=== PATIENT | female | born 1935 | race African-American/Black ===

== ENCOUNTER → 2018-04-12 16:18 | Outpatient (CLI) | payer MEDICARE, OTHER, SELFPAY ==
[2018-04-12 17:08] LABS: Absolute Lymphocyte Count 1.78 X10^3/ul (0.83-4.51); Absolute Neutrophil Count 2.4 X10^3/uL (2.0-7.7); Basophil# 0.01 X10^3/uL; Basophil% 0.2 % (0-1); Eosinophil# 0.12 X10^3/uL; Eosinophils% 2.5 % (0-5); Hematocrit 32.4 % (37-47); Hemoglobin 11.2 g/dl (12.0-15.0); Lymphocyte # 1.78 X10^3/ul (4.0); Lymphocyte % 37.7 % (19-41); Mean Corp Hgb Conc 34.6 g/gl (32-36); Mean Corpuscular Hgb 28.9 pg (27.0-32.0); Mean Corpuscular Volume 83.7 fL (81-99); Monocyte# 0.45 X10^3/uL; Monocyte% 9.5 % (0-10); Neutrophil # 2.36 X10^3/uL (2.7-7.7); Neutrophil % 50.1 % (47-70); POSITIVE COUNT NO; POSITIVE DIFFERENTIAL NO; POSITIVE MORPHOLOGY NO; Platelet Count 162 K/mm3 (150-450); RBC Distribution Width CV 14.7 % (11.6-14.6); RBC Distribution Width SD 44.2 fl (35.1-43.9); Red Blood Count 3.87 M/mm3 (4.2-5.4); White Blood Count 4.7 K/mm3 (4.4-11.0)
[2018-04-12 17:45] LABS: ALB/GLOB Ratio 0.9 RATIO (0.9-2.4); AST(SGOT) 9 U/L (15-37); Alanine Aminotransfer ALT/SGPT 11 U/L (13-56); Albumin, Serum 3.5 g/dL (3.2-5.0); Alkaline Phosphatase 71 U/L (45-117); Anion Gap 11 (5-15); BUN 13 mg/dL (7-18); BUN/Creat Ratio 13.5 RATIO (10-20); Calcium,Total 9.5 mg/dL (8.5-10.1); Chloride 105 mmol/L (98-107); Creatinine, Serum 0.96 mg/dL (0.55-1.02); EST Glomerular Filtration Rate 59 mL/min (>60); Est Glom Filt Rate - Afr Amer 71 mL/min (>60); Globulin 3.8 g/dL (2.2-4.2); Glucose 100 mg/dL (74-106); Potassium 3.6 mmol/L (3.5-5.1); Protein, Total 7.3 g/dL (6.4-8.2); Sodium Level 145 mmol/L (136-145); Thyroid Stim Hormone (TSH) 2.13 uIU/mL (0.358-3.74)
[2018-04-12 17:51] LABS: Vitamin D,25 Hydroxy 44.8 ng/mL (29.95-100.01)
== END ==
PROVIDERS: Family Provider Family Medicine Geriatric Medicine; PCP Family Medicine Geriatric Medicine; Visit Provider Family Medicine Geriatric Medicine
DX: I10 Essential (primary) hypertension (principal); E55.9 Vitamin D deficiency, unspecified
CPT/HCPCS: 36415; 80053; 82306; 84443; 85025

== ENCOUNTER → 2018-07-29 16:02 | Outpatient (CLI) | payer MEDICARE, OTHER, SELFPAY ==
[2018-07-29 18:31] LABS: ALB/GLOB Ratio 1.1 RATIO (0.9-2.4); AST(SGOT) 12 U/L (15-37); Alanine Aminotransfer ALT/SGPT 14 U/L (13-56); Albumin, Serum 3.7 g/dL (3.2-5.0); Alkaline Phosphatase 80 U/L (45-117); Anion Gap 9 (5-15); BUN 15 mg/dL (7-18); BUN/Creat Ratio 16.4 RATIO (10-20); Calcium,Total 9.9 mg/dL (8.5-10.1); Chloride 107 mmol/L (98-107); Cholesterol 257 mg/dL (200); Creatinine, Serum 0.92 mg/dL (0.55-1.02); EST Glomerular Filtration Rate 62 mL/min (>60); Est Glom Filt Rate - Afr Amer 75 mL/min (>60); Globulin 3.5 g/dL (2.2-4.2); Glucose 90 mg/dL (74-106); High Density Lipoprotein 86 mg/dL; Potassium 3.8 mmol/L (3.5-5.1); Protein, Total 7.2 g/dL (6.4-8.2); Sodium Level 143 mmol/L (136-145); Triglycerides 98 mg/dL; Very Low Density Lipoprotein 20 mg/dL (5-40)
== END ==
PROVIDERS: Family Provider Family Medicine; PCP Family Medicine; Referring Provider Family Medicine; Visit Provider Family Medicine
DX: E78.5 Hyperlipidemia, unspecified (principal)
CPT/HCPCS: 36415; 80053; 80061

== ENCOUNTER → 2019-05-02 16:03 | Outpatient (CLI) | payer MEDICARE, OTHER, SELFPAY ==
[2019-05-02 17:53] LABS: AST(SGOT) 10 U/L (15-37); Alanine Aminotransfer ALT/SGPT 14 U/L (13-56); Anion Gap 7 (5-15); BUN 13 mg/dL (7-18); Calcium,Total 9.8 mg/dL (8.5-10.1); Chloride 103 mmol/L (98-107); Cholesterol 246 mg/dL (200); Creatinine, Serum 0.81 mg/dL (0.55-1.02); EST Glomerular Filtration Rate 72 mL/min (>60); Est Glom Filt Rate - Afr Amer 87 mL/min (>60); Glucose 122 mg/dL (74-106); High Density Lipoprotein 82 mg/dL; Potassium 3.7 mmol/L (3.5-5.1); Sodium Level 138 mmol/L (136-145); Thyroid Stim Hormone (TSH) 1.25 uIU/mL (0.358-3.74); Triglycerides 94 mg/dL; Very Low Density Lipoprotein 19 mg/dL (5-40)
== END ==
PROVIDERS: Family Medicine; PCP Family Medicine; Referring Provider Family Medicine; Visit Provider Family Medicine
DX: I10 Essential (primary) hypertension (principal); I48.91 Unspecified atrial fibrillation; E78.5 Hyperlipidemia, unspecified
CPT/HCPCS: 36415; 80048; 80061; 84443; 84450; 84460

== ENCOUNTER → 2019-12-28 16:12 | Outpatient (CLI) | payer MEDICARE, OTHER, SELFPAY ==
[2019-12-28 19:02] LABS: Anion Gap 9 (5-15); BUN 15 mg/dL (7-18); BUN/Creat Ratio 18.8 RATIO (10-20); Calcium,Total 9.7 mg/dL (8.5-10.1); Chloride 104 mmol/L (98-107); Cholesterol 264 mg/dL (200); EST Glomerular Filtration Rate 73 mL/min (>60); Est Glom Filt Rate - Afr Amer 88 mL/min (>60); Glucose 92 mg/dL (74-106); High Density Lipoprotein 95 mg/dL; Potassium 3.3 mmol/L (3.5-5.1); Sodium Level 138 mmol/L (136-145); Triglycerides 109 mg/dL; Very Low Density Lipoprotein 22 mg/dL (5-40)
== END ==
PROVIDERS: PCP Family Medicine; Referring Provider Family Medicine; Visit Provider Family Medicine
DX: I10 Essential (primary) hypertension (principal)
CPT/HCPCS: 36415; 80048; 80061

== ENCOUNTER → 2020-04-25 15:18 | Outpatient (CLI) | payer MEDICARE, OTHER, SELFPAY ==
[2020-04-25 18:11] LABS: Anion Gap 3 (5-15); BUN 25 mg/dL (7-18); BUN/Creat Ratio 27.6 RATIO (10-20); Calcium,Total 10.7 mg/dL (8.5-10.1); Chloride 107 mmol/L (98-107); EST Glomerular Filtration Rate 63 mL/min (>60); Est Glom Filt Rate - Afr Amer 76 mL/min (>60); Glucose 101 mg/dL (74-106); Potassium 4.1 mmol/L (3.5-5.1); Sodium Level 142 mmol/L (136-145)
== END ==
PROVIDERS: PCP Family Medicine; Visit Provider Family Medicine
DX: I48.91 Unspecified atrial fibrillation (principal)
CPT/HCPCS: 36415; 80048

== ENCOUNTER → 2020-12-05 16:01 | Outpatient (CLI) | payer MEDICARE, OTHER, SELFPAY ==
[2020-12-05 18:11] LABS: Absolute Lymphocyte Count 1.82 X10^3/uL (0.83-4.51); Absolute Neutrophil Count 2.8 X10^3/uL (2.0-7.7); Basophil# 0.02 X10^3/uL; Basophil% 0.4 % (0-1); Eosinophil# 0.07 X10^3/uL; Eosinophils% 1.3 % (0-5); Hematocrit 34.9 % (37-47); Hemoglobin 11.9 g/dL (12.0-15.0); Lymphocyte # 1.82 X10^3/ul (0.83-4.51); Lymphocyte % 34.7 % (19-41); Mean Corp Hgb Conc 34.1 g/dL (32-36); Mean Corpuscular Hgb 27.9 pg (27.0-32.0); Mean Corpuscular Volume 81.9 fL (81-99); Mean Platelet Vol. 11.6 fl (6.2-12.0); Monocyte# 0.56 X10^3/uL; Monocyte% 10.7 % (0-10); NRBC Flagged by Analyzer 0 % (0-5); Neutrophil # 2.76 X10^3/uL (2.7-7.7); Neutrophil % 52.7 % (47-70); Platelet Count 217 K/mm3 (150-450); RBC Distribution Width CV 14.7 % (11.6-14.6); RBC Distribution Width SD 43.5 fl (35.1-43.9); Red Blood Count 4.26 M/mm3 (4.2-5.4); White Blood Count 5.2 K/mm3 (4.4-11.0)
[2020-12-05 18:59] LABS: Anion Gap 9 (5-15); BUN 25 mg/dL (7-18); Calcium,Total 10.3 mg/dL (8.5-10.1); Chloride 104 mmol/L (98-107); Cholesterol 227 mg/dL (200); Creatinine, Serum 1.19 mg/dL (0.55-1.02); EST Glomerular Filtration Rate 46 mL/min (>60); Est Glom Filt Rate - Afr Amer 55 mL/min (>60); Glucose 112 mg/dL (74-106); High Density Lipoprotein 70 mg/dL; Sodium Level 141 mmol/L (136-145); Thyroid Stim Hormone (TSH) 0.86 uIU/mL (0.358-3.74); Triglycerides 112 mg/dL; Very Low Density Lipoprotein 22 mg/dL (5-40)
== END ==
PROVIDERS: PCP Family Medicine; Referring Provider Family Medicine; Visit Provider Family Medicine
DX: E78.5 Hyperlipidemia, unspecified (principal); I10 Essential (primary) hypertension; R53.83 Other fatigue
CPT/HCPCS: 36415; 80048; 80061; 84443; 85025

== ENCOUNTER 2021-06-03 15:00 | Outpatient (CLI) | payer MEDICARE, OTHER, SELFPAY ==
[2021-06-03 17:55] LABS: Absolute Lymphocyte Count 1.41 X10^3/uL (0.83-4.51); Absolute Neutrophil Count 2.3 X10^3/uL (2.0-7.7); Basophil# 0.03 X10^3/uL; Basophil% 0.7 % (0-1); Eosinophil# 0.08 X10^3/uL; Eosinophils% 1.8 % (0-5); Hematocrit 35.2 % (37-47); Hemoglobin 12.3 g/dL (12.0-15.0); Lymphocyte # 1.41 X10^3/ul (0.83-4.51); Lymphocyte % 32.3 % (19-41); Mean Corp Hgb Conc 34.9 g/dL (32-36); Mean Corpuscular Hgb 28.3 pg (27.0-32.0); Mean Corpuscular Volume 81.1 fL (81-99); Mean Platelet Vol. 11.9 fl (6.2-12.0); Monocyte# 0.51 X10^3/uL; Monocyte% 11.7 % (0-10); NRBC Flagged by Analyzer 0 % (0-5); Neutrophil # 2.33 X10^3/uL (2.7-7.7); Neutrophil % 53.3 % (47-70); Platelet Count 211 K/mm3 (150-450); RBC Distribution Width CV 14.8 % (11.6-14.6); RBC Distribution Width SD 43.9 fl (35.1-43.9); Red Blood Count 4.34 M/mm3 (4.2-5.4); White Blood Count 4.4 K/mm3 (4.4-11.0)
[2021-06-03 18:08] LABS: ALB/GLOB Ratio 0.9 RATIO (0.9-2.4); AST(SGOT) 13 U/L (15-37); Alanine Aminotransfer ALT/SGPT 11 U/L (13-56); Albumin, Serum 3.6 g/dL (3.2-5.0); Alkaline Phosphatase 66 U/L (45-117); Anion Gap 8 (5-15); BUN 14 mg/dL (7-18); BUN/Creat Ratio 14.8 RATIO (10-20); Calcium,Total 10.4 mg/dL (8.5-10.1); Chloride 103 mmol/L (98-107); Cholesterol 267 mg/dL (200); Creatinine, Serum 0.95 mg/dL (0.55-1.02); EST Glomerular Filtration Rate 59 mL/min (>60); Est Glom Filt Rate - Afr Amer 72 mL/min (>60); Globulin 4.1 g/dL (2.2-4.2); Glucose 114 mg/dL (74-106); High Density Lipoprotein 70 mg/dL; Potassium 3.6 mmol/L (3.5-5.1); Protein, Total 7.7 g/dL (6.4-8.2); Sodium Level 139 mmol/L (136-145); Triglycerides 133 mg/dL; Very Low Density Lipoprotein 27 mg/dL (5-40)
== END 2021-06-03 23:59 | disposition home or self-care (01) ==
LOC: MFPLAB 15:01
PROVIDERS: PCP Family Medicine; Visit Provider Family Medicine
DX: I10 Essential (primary) hypertension (principal); R53.83 Other fatigue
CPT/HCPCS: 36415; 80053; 80061; 85025

== ENCOUNTER 2021-06-07 16:52 | Observation (INO) | payer MEDICARE, OTHER, SELFPAY ==
[2021-06-07] VITALS (11 sets, daily range): BP systolic 81–137; BP diastolic 47–69; PULSE 70–96; RESP 15–28; TEMP 36.5–36.9; O2SAT 95–100; BMI 19.5; BMI 17.6
--- NOTE | 2021-06-07 17:10 | EKG12_ITS ---
Test Reason : SYNCOPE Blood Pressure : / mmHG Vent. Rate : 069 BPM Atrial Rate : 069 BPM P-R Int : 182 ms QRS Dur : 096 ms QT Int : 424 ms P-R-T Axes : 041 063 051 degrees QTc Int : 454 ms Normal sinus rhythm with sinus arrhythmia ST & T wave abnormality, consider lateral ischemia Abnormal ECG Confirmed by BROCK SMALLS, PADMA ([id number]), digital editor HILAROI MCGREGOR ([id number]) on 06/11/2021 11:44:05 AM Referred By: AMERICO Confirmed By:PADMA GUTIÉRREZ MD
--- NOTE | 2021-06-07 17:15 | RAD_ITS ---
INDICATION: chest pain EXAMINATION/TECHNIQUE: X-RAY - XR Chest 1 View COMPARISON: None. FINDINGS: The lungs are clear. Tortuous and calcified thoracic aorta. The heart is mildly enlarged. Flattening of the hemidiaphragms. No pleural effusion or pneumothorax. Degenerative changes of the thoracic spine and shoulders. RAD/Chest 1 View (Portable) IMPRESSION: No acute radiographic abnormalities. COPD. Electronically Signed: Nato Ibrahim MD at 18:30 EDT ,
--- NOTE | 2021-06-07 17:18 | EDS_ITS ---
HPI History of Present Illness Chief Complaint: Syncope Informant: patient Onset/Context/Timing Onset: Today Context: Sudden Onset Timing: Intermittent Current Severity: Mild Maximum Severity: Moderate Narrative Narrative: 85-year-old female history of hypertension. States she took her medications at home felt lightheaded and had a syncopal event. I believe the squad came out checked her out and she did not come in the emergency department. And she had a second episode while in the bathroom. She denies any headache or chest pain. She denies any recent illness. She did have nausea and vomiting after the first episode. Denies any abdominal pain or chest pain. Patient denies any history of cardiac disease. Denies prior syncopal events. Prior similar symptoms: No Recent Illness/Hospitalization: No PFSH PFSH Medical History High cholesterol HTN (hypertension) Home Medications amlodipine 10 mg PO DAILY 05/20/20 [History Last Taken Unknown] carvedilol 12.5 mg PO BID 05/20/20 [History Last Taken Unknown] lisinopril 40 mg PO DAILY 05/20/20 [History Last Taken Unknown] minoxidil 10 mg PO DAILY 05/20/20 [History Last Taken Unknown] simvastatin 40 mg PO DAILY 05/20/20 [History Last Taken Unknown] Allergy/AdvReac Type Severity Reaction Status Date / Time No Known Allergies Allergy Verified 06/07/21 16:52 Social History Smoking Status: Never smoker ROS ROS ED ROS Narrative Nausea and vomiting after syncopal episode. Review of Systems ROS Unobtainable: Denies due to encephalopathy Constitutional Constitutional ED: Denies fever(s) Eyes Eyes: Denies change in vision ENT ENT ED: Denies ear pain Cardiovascular Cardiovascular: Denies chest pain Respiratory/Chest Respiratory/Chest: Denies dyspnea Gastrointestinal Gastrointestinal: Reports nausea and vomiting; Denies abdominal pain or diarrhea Genitourinary Genitourinary ED: Denies dysuria Musculoskeletal Musculoskeletal: Denies myalgias Integumentary Denies rash Neurologic Neurologic: Denies headache(s) Psychiatric Psychiatric: Denies depression Endocrine Endocrinology: Denies polyuria Allergic/Immunologic Allergic/Immunologic ED: Denies urticaria EXAM Physical Exam Narrative Exam Narrative: 85-year-old female no acute distress. Initial blood pressure 130/69. Heart rate 70. She is afebrile. She does not look septic or toxic. She denies any complaints. H EENT exam unremarkable atraumatic. Pupils round reactive light. No facial droop. Moist membranes. Neck nontender no lymphadenopathy. No JVD. Lungs clear to auscultation bilaterally. Heart regular rate and rhythm rate about 70 no murmur. Chest wall nontender. Abdomen soft nontender. Normal bowel sounds no peritoneal signs. Moving all 4 extre mities. 5-5 gasoline attendant strength. Dorsi plantarflexion intact. No shortening or deformity of either upper or lower extremities. Back nontender. Neurologically she is awake and alert. Answering questions and following commands. She knows the month and appropriately. There is no focal motor deficits. She is not confused. Const Vital Signs: 06/07/21 16:53 06/07/21 16:59 06/07/21 17:14 Temperature 97.7 F L Temperature Source Oral Pulse Rate 70 Respiratory Rate 15 Respiratory Effort Normal Non-Labored Respiratory Pattern Normal Blood Pressure 137/69 H Blood Pressure Mean 91 Pulse Ox 96 Oxygen Delivery Method Room Air Room Air 06/07/21 18:27 06/07/21 19:04 06/07/21 19:17 Temperature Temperature Source Pulse Rate 70 71 Respiratory Rate 22 H 24 H Respiratory Effort Respiratory Pattern Blood Pressure 102/55 L 81/48 L 89/50 L Blood Pressure Mean 70 59 63 Pulse Ox 95 99 Oxygen Delivery Method Nasal Cannula Room Air 06/07/21 20:01 06/07/21 20:31 Temperature 98.5 F Temperature Source Oral Pulse Rate 81 83 Respiratory Rate 28 H 20 H Respiratory Effort Respiratory Pattern Blood Pressure 96/47 L 97/55 L Blood Pressure Mean 63 69 Pulse Ox 96 100 Oxygen Delivery Method Room Air Room Air Positive well nourished and well developed; Negative for obese, cachectic, contractures or unkempt General Appearance ED: well developed and NAD; Negative for unkempt, cachectic, contractures, cyanotic or diaphoretic Nutritional Appearance: Negative for cachectic or obese HEENT Reports moist mucous membranes Negative for trauma or tenderness Eyes PERRL and EOMs intact bilaterally General Eye ED: Negative for pale conjunctiva or scleral icterus Neck no lymphadenopathy, supple and no JVD General: Negative for tenderness Chest Wall inspection of chest normal and palpation of chest normal Resp normal respiratory effort and clear to auscultation bilaterally Auscultation: Negative for rales, rhonchi or wheezes Cardio regular rate, regular rhythm, S1 normal heart sound, S2 normal heart sound and no murmurs GI normal to inspection, nondistended, normoactive bowel sounds, non-tender, non- distended and no masses Inspection: Negative for abdominal distention Auscultation: normoactive bowel sounds Palpation: soft; Negative for tender, guarding or rebound tenderness present Back/Spine no CVA tenderness General Back: Negative for CVA tenderness Cervical Spine: Negative for cervical spine tenderness Thoracic Spine / Upper Back: Negative for thoracic spinal tenderness Lumbar Spine / Lower Back: Negative for lumbar spinal tenderness Extremity normal to inspection General Extremety ED: Negative for edema or tenderness General Extremity: Negative for edema Neuro oriented x3 Sensorium / Orientation: alert; Negative for orientation impaired, lethargic or stuporous Motor Exam: strength 5/5 throughout Psych mental status grossly normal Appearance: Negative for unkempt Mood & Affect: Negative for depressed or tearful Skin no rashes or lesions noted and no wounds MDM MDM MDM Narrative Medical decision making narrative: 85-year-old female from home treated for hypertension. Had 2 syncopal episodes today. After the second had nausea and vomiting. Prior to passing out she had no symptoms. She denies any headache, chest pain or shortness of breath. No abdominal pain. She will undergo cardiac work-up. She will be treated with IV fluids. Repeat exam patient doing well. After 2 L of fluid her blood pressure really has not changed drastically she is between 90 and 100 systolic. She is tolerating it well. She is sitting upright in bed. She and I and to friends at the side of the bed discussed all of her test results. She will be admitted to the hospital. I have the hospitalist on page. A urine culture will be sent. Lab Data Attestation: I reviewed the patient's lab results. Lab results narrative: CBC shows a white count 7. H&H 9.9 and 27.8. Platelets 173. Electrolytes show potassium of 3.2. Gap of 2. BUN 19 creatinine 1.75. Glucose 148. Chest x-ray unremarkable. Lactic acid normal 0.4. Urinalysis shows 10-25 white cells. 0 squamous cells no bacteria no nitrates. Be sent for culture. Labs: Laboratory Results - last 24 hr 06/07/21 06/07/21 06/07/21 17:30 17:30 19:45 WBC 7.4 RBC 3.42 L Hgb 9.9 L Hct 27.8 L MCV 81.3 MCH 28.9 MCHC 35.6 RDW Std Deviation 44.5 H RDW Coeff of Desiree 15.0 H Plt Count 173 MPV 10.9 Immature Gran % (Auto) 0.300 Neut % (Auto) 82.3 H Lymph % (Auto) 12.1 L [place] % (Auto) 4.7 Eos % (Auto) 0.3 Baso % (Auto) 0.3 Absolute Neuts (auto) 6.1 Absolute Lymphs (auto) 0.90 Nucleated RBC % 0 Sodium 143 Potassium 3.2 L Chloride 114 H Carbon Dioxide 27.0 Anion Gap 2 L BUN 19 H Creatinine 1.75 H Estim Creat Clear Calc 16.83 Est GFR (MDRD) Af Amer 35 L Est GFR (MDRD) Non-Af 29 L BUN/Creatinine Ratio 10.9 Glucose 148 H Lactic Acid Calcium 8.4 L Urine Color Ayesha Urine Clarity Sl. Cloudy Urine pH 5.0 Ur Specific [place] 1.025 Urine Protein 30 H Urine Glucose (UA) Normal Urine Ketones 5 H Urine Occult Blood Negative Urine Nitrite Negative Urine Bilirubin 3 H Urine Urobilinogen 8 H Ur Leukocyte Esterase 500 H Urine RBC 0 SEEN Urine WBC 10-25 SEEN Ur Squamous Epith Cells 0-5 SEEN Ur Renal Epithelial Cell 0-5 SEEN Amorphous Sediment 1+ Urine Bacteria 0 SEEN Urine Mucus 0 SEEN 06/07/21 19:59 WBC RBC Hgb Hct MCV MCH MCHC RDW Std Deviation RDW Coeff of Desiree Plt Count MPV Immature Gran % (Auto) Neut % (Auto) Lymph % (Auto) [place] % (Auto) Eos % (Auto) Baso % (Auto) Absolute Neuts (auto) Absolute Lymphs (auto) Nucleated RBC % Sodium Potassium Chloride Carbon Dioxide Anion Gap BUN Creatinine Estim Creat Clear Calc Est GFR (MDRD) Af Amer Est GFR (MDRD) Non-Af BUN/Creatinine Ratio Glucose Lactic Acid 0.4 Calcium Urine Color Urine Clarity Urine pH Ur Specific [place] Urine Protein Urine Glucose (UA) Urine Ketones Urine Occult Blood Urine Nitrite Urine Bilirubin Urine Urobilinogen Ur Leukocyte Esterase Urine RBC Urine WBC Ur Squamous Epith Cells Ur Renal Epithelial Cell Amorphous Sediment Urine Bacteria Urine Mucus Radiography Chest X-Ray - ED: 1 View, Read by ED Physician, Read by Radiologist, Heart, Lungs, Mediastinum, Bony Structures, No Acute Disease and Chronic Changes Diagnostic Testing: Clinical Impression(s) from Imaging Studies Chest X-Ray 06/07/21 17:15 IMPRESSION: No acute radiographic abnormalities. COPD. Electronically Signed: Nato Ibrahim MD at 18:30 EDT , Rhythm Strip Rhythm Strip: Sinus Rhythm Rate: 69 Ectopy: None EKG Initial EKG: Attestation: I personally reviewed and interpreted this EKG as follows: Interpretation: Sinus Rhythm and No Acute Injury Pattern Comments: Normal sinus rhythm rate of 69. Inverted T waves in V3 through 6. That change but the most recent EKG we have is from 2008. No signs of ST elevation or dysrhythmia. Prior EKG tracings: available for review Follow-up EKG: Attestation: I personally reviewed and interpreted this EKG as follows: Comments: Repeat EKG was obtained. Computer is read as a possible A. fib. It is irregular but there do appear to be P waves before certain QRS complexes. I discussed this with the hospitalist he is reviewing the EKG also.. We discussed possible cardiology consultation. Discharge Plan Triage Chief Complaint: Syncope ED Provider: Carlos Manuel Lomeli Dx/Rx/DC Orders Clinical Impression: Syncope, Acute hypotension Primary Care Provider: Kevyn Tripp
[2021-06-07] MEDS: 0.9% Normal Saline 1,000 ML 999 ML IV ×2 (17:38→19:23)
[2021-06-07 17:54] LABS: Absolute Neutrophil Count 6.1 X10^3/uL (2.0-7.7); Basophil# 0.02 X10^3/uL; Basophil% 0.3 % (0-1); Eosinophil# 0.02 X10^3/uL; Eosinophils% 0.3 % (0-5); Hematocrit 27.8 % (37-47); Hemoglobin 9.9 g/dL (12.0-15.0); Lymphocyte % 12.1 % (19-41); Mean Corp Hgb Conc 35.6 g/dL (32-36); Mean Corpuscular Hgb 28.9 pg (27.0-32.0); Mean Corpuscular Volume 81.3 fL (81-99); Mean Platelet Vol. 10.9 fl (6.2-12.0); Monocyte# 0.35 X10^3/uL; Monocyte% 4.7 % (0-10); NRBC Flagged by Analyzer 0 % (0-5); Neutrophil # 6.13 X10^3/uL (2.7-7.7); Neutrophil % 82.3 % (47-70); Platelet Count 173 K/mm3 (150-450); RBC Distribution Width SD 44.5 fl (35.1-43.9); Red Blood Count 3.42 M/mm3 (4.2-5.4); White Blood Count 7.4 K/mm3 (4.4-11.0)
[2021-06-07 18:08] LABS: BUN 19 mg/dL (7-18); BUN/Creat Ratio 10.9 RATIO (10-20); Calcium,Total 8.4 mg/dL (8.5-10.1); Creatinine, Serum 1.75 mg/dL (0.55-1.02); EST Glomerular Filtration Rate 29 mL/min (>60); Est Glom Filt Rate - Afr Amer 35 mL/min (>60); Estimated Creatinine Clearance 16.83 ml/min; Glucose 148 mg/dL (74-106)
[2021-06-07 18:09] LABS: Anion Gap 2 (5-15); Chloride 114 mmol/L (98-107); Potassium 3.2 mmol/L (3.5-5.1); Sodium Level 143 mmol/L (136-145)
[2021-06-07 19:48] LABS: Bacteria 0 SEEN /hpf (None Seen); Mucous, Urine 0 SEEN /hpf (<or=2+); Red Blood Cells-Urine 0 SEEN /hpf (0-5)
[2021-06-07 20:03] LABS: Color, Urine Amber (Yellow); Glucose, Dipstick Normal (Normal); Ketone-Dipstick 5 mg/dl (Negative); Leukocyte Esterase-Dipstick 500 /ul (Negative); Nitrite-Dipstick Negative (Negative); Occult Blood-Urine Negative /ul (Negative); Protein-Dipstick 30 mg/dl (Negative); Specific Gravity, Urine 1.025 (1.002-1.030); Urine Bilirubin Dipstick 3 mg/dL (Negative); Urine Clarity Sl. Cloudy (Clear); Urine Urobilinogen 8 mg/dl (Normal)
[2021-06-07 20:11] LABS: Squamous Epithelial Cells - UA 0-5 SEEN /hpf (5-10); White Blood Cells 10-25 SEEN /hpf (0-5)
[2021-06-07 20:12] LABS: Amorphous Sediment 1+; Renal Epithelial Cells 0-5 SEEN /hpf (0-5)
[2021-06-07 20:32] LABS: Lactic Acid 0.4 mmol/L (0.4-1.9)
--- NOTE | 2021-06-07 21:45 | EKG12_ITS ---
Test Reason : REPEAT Blood Pressure : / mmHG Vent. Rate : 081 BPM Atrial Rate : 105 BPM P-R Int : 000 ms QRS Dur : 070 ms QT Int : 396 ms P-R-T Axes : 000 036 -69 degrees QTc Int : 460 ms SINUS VS. ECTOPOIC ATRIAL RHYTHM WITH PROLONGED CT INTERVAL LOW VOLTAGE QRS ( LIMB LEADS) Nonspecific ST and T wave abnormality Abnormal ECG Confirmed by BROCK SMALLS, PADMA ([id number]), editor trade journal HILARIO MCGREGOR ([id number]) on 06/11/2021 1:26:02 PM Referred By: MYLES Confirmed By:PADMA GUTIÉRREZ MD
--- NOTE | 2021-06-07 21:49 | PCM.HP.STD ---
HPI - General General Date of Admission: 06/07/21 HPI Narrative ANNA MCCORMACK, is a 85 F with a significant history of hypertension and hyperlipidemia who presents emergency department with 2 episodes of syncope. A community health nurse staff who was at patient house called the paramedics for patient at the first syncopal episode. When paramedics arrived because patient felt okay so she did not come to the hospital. Later on patient went to the bathroom and passed out again. After passing out the second time she had nausea and vomiting. Patient was subsequently brought to the hospital by paramedics. Patient reports anorexia. She reports losing some weight for some time now but she is unable to quantify the exact amount of weight she has lost. She takes four medications in the morning. After taking these medications she feels unwell but recovers after some time. [facility] Medical History High cholesterol HTN (hypertension) Home Medications amlodipine 10 mg PO DAILY 05/20/20 [History Last Taken Unknown] carvedilol 12.5 mg PO BID 05/20/20 [History Last Taken Unknown] lisinopril 40 mg PO DAILY 05/20/20 [History Last Taken Unknown] minoxidil 10 mg PO DAILY 05/20/20 [History Last Taken Unknown] simvastatin 40 mg PO DAILY 05/20/20 [History Last Taken Unknown] Allergy/AdvReac Type Severity Reaction Status Date / Time No Known Allergies Allergy Verified 06/07/21 16:52 Family History Other Diabetes Surgical History History of appendectomy Previous back surgery Social History Smoking Status: Never smoker ROS ROS Narrative Pertinent positives and pertinent negatives as noted in HPI. All other systems were reviewed and are negative. Vital Signs Vital Signs Vital Signs: 06/07/21 16:53 06/07/21 16:59 06/07/21 17:14 Temperature 97.7 F L Temperature Source Oral Pulse Rate 70 Respiratory Rate 15 Respiratory Effort Normal Non-Labored Respiratory Pattern Normal Blood Pressure 137/69 H Blood Pressure Mean 91 Pulse Ox 96 Oxygen Delivery Method Room Air Room Air 06/07/21 18:27 06/07/21 19:04 06/07/21 19:17 Temperature Temperature Source Pulse Rate 70 71 Respiratory Rate 22 H 24 H Respiratory Effort Respiratory Pattern Blood Pressure 102/55 L 81/48 L 89/50 L Blood Pressure Mean 70 59 63 Pulse Ox 95 99 Oxygen Delivery Method Nasal Cannula Room Air 06/07/21 20:01 06/07/21 20:31 Temperature 98.5 F Temperature Source Oral Pulse Rate 81 83 Respiratory Rate 28 H 20 H Respiratory Effort Respiratory Pattern Blood Pressure 96/47 L 97/55 L Blood Pressure Mean 63 69 Pulse Ox 96 100 Oxygen Delivery Method Room Air Room Air Weight Weight: 45.359 kg Body Mass Index (BMI) 19.5 Physical Exam Narrative Physical exam: General: Thin frame elderly female. Head: Normocephalic, atraumatic, no tenderness Eyes: Vision is grossly intact. EOMI ENT, no trauma, moist mucous membranes, no rhinorrhea Neck: Nontender, full range of motion, no spinal tenderness, deformities, step-off CVS: Regular rate and rhythm. S1-S2 present. No murmur, gallop or rub. Respiratory : clear to auscultation bilaterally, chest wall nontender, no wheezing Abdomen: Soft, nontender, nondistended, normal bowel sounds, no masses : Deferred Back: Nontender, no CVA tenderness, no midline spinal tenderness, deformities, step-offs Extremities: Nontender full range of motion, no trauma. Cachexia Skin: Normal color, no trauma, abrasions. Dry skin Neuro: Alert, oriented, cranial nerves II through XII grossly intact. Psychiatry: Normal mood. Normal affect. Not depressed. Not anxious. Results Lab / Micro Data Result Diagrams: 06/07/21 17:30 06/07/21 17:30 Labs: Laboratory Results - last 24 hr 06/07/21 17:30: WBC 7.4, RBC 3.42 L, Hgb 9.9 L, Hct 27.8 L, MCV 81.3, MCH 28.9, MCHC 35.6, RDW Std Deviation 44.5 H, RDW Coeff of Desiree 15.0 H, Plt Count 173, MPV 10.9, Immature Gran % (Auto) 0.300, Neut % (Auto) 82.3 H, Lymph % (Auto) 12.1 L, [place] % (Auto) 4.7, Eos % (Auto) 0.3, Baso % (Auto) 0.3, Absolute Neuts (auto) 6.1, Absolute Lymphs (auto) 0.90, Nucleated RBC % 0 06/07/21 17:30: Sodium 143, Potassium 3.2 L, Chloride 114 H, Carbon Dioxide 27.0, Anion Gap 2 L, BUN 19 H, Creatinine 1.75 H, Estim Creat Clear Calc 16.83, Est GFR (MDRD) Af Amer 35 L, Est GFR (MDRD) Non-Af 29 L, BUN/Creatinine Ratio 10.9, Glucose 148 H, Calcium 8.4 L 06/07/21 19:45: Urine Color Ayesha, Urine Clarity Sl. Cloudy, Urine pH 5.0, Ur Specific Smiley 1.025, Urine Protein 30 H, Urine Glucose (UA) Normal, Urine Ketones 5 H, Urine Occult Blood Negative, Urine Nitrite Negative, Urine Bilirubin 3 H, Urine Urobilinogen 8 H, Ur Leukocyte Esterase 500 H, Urine RBC 0 SEEN, Urine WBC 10-25 SEEN, Ur Squamous Epith Cells 0-5 SEEN, Ur Renal Epithelial Cell 0-5 SEEN, Amorphous Sediment 1+, Urine Bacteria 0 SEEN, Urine Mucus 0 SEEN 06/07/21 19:59: Lactic Acid 0.4 Rhythm Strip Rhythm Strip: Sinus Rhythm Rate: 69 Ectopy: None Radiology Impression Chest X-Ray 06/07/21 17:15 IMPRESSION: No acute radiographic abnormalities. COPD. Electronically Signed: Nato Ibrahim MD at 18:30 EDT , Assessment & Plan Assessment/Plan (1) Syncope: QUALIFIERS: Syncope type: unspecified Qualified Code(s): R55 - Syncope and collapse (2) Acute hypotension: (3) MELANIE (acute kidney injury): (4) Abnormal EKG: (5) Hypokalemia: PLAN: Syncope Syncope likely secondary to multiple blood pressure medications include minoxidil. Hold all home blood pressure medications at this time. EKG independently reviewed showed T wave inversions in leads V3 to V6. Previous EKG reviewed did not show these abnormalities. However previous EKG available was done in 2008. Repeat EKG was interpreted by machine as atrial fibrillation. However upon independent review P waves were found so atrial fibrillation ruled out at this time. Chest x-ray was visualized and independently interpreted. Chest x-ray with no acute cardiopulmonary process. I agree with radiologist interpretation. Echocardiogram ordered. Trend troponin Received normal saline bolus at emergency department. Because of hyperchloremia lactated Ringer's ordered. Orthostatic vitals per protocol Observe on telemetry at progressive care unit. MELANIE Creatinine on presentation was 1.75. Review of record showed that her creatinine on 06/03/2021 was 0.95 and on 12/05/2020 was 1.19. Baseline creatinine approximately 1.0. Gentle IV hydration ordered. Avoid nephrotoxins. Hold lisinopril especially as patient has hypotension. Trend BMP. Hypokalemia Potassium of 3.2 Replace Trend BMP and check magnesium Moderate protein calorie malnutrition BMI of 19.5. Review of labs shows albumin on 06/03/2021 was 3.6, normal. Dietitian consult. Ensure Enlive ordered. DVT prophylaxis Subcutaneous heparin ordered. Charges/Coding Visit Charges OBSV E&M: 90251 Initial observation care L3
--- NOTE | 2021-06-07 22:29 | ECHOD_ITS ---
Reason For Study: Syncope Procedure This was a 2D Doppler, Color Flow transthoracic echocardiogram. The exam was of adequate technical quality. Exam performed portable in patient room. Left Ventricle Normal LV size. Left ventricular systolic function is normal. The estimated ejection fraction is 70 %. There is evidence of diastolic dysfunction. No regional wall motion abnormalities noted. Right Ventricle Normal RV size. Normal systolic function. Atria The left atrium is moderately enlarged. The right atrium is moderately enlarged. No doppler evidence for ASD. Mitral Valve There is mild mitral annular calcification. Anterior leaflet diffuse mitral valve thickening. Mild (1+) mitral valve insufficiency. Tricuspid Valve Normal tricuspid valve. Moderately severe (3+) tricuspid valve insufficiency. Right ventricular systolic pressure estimated to be 64 mmHg. Aortic Valve Trisinus/trileaflet aortic valve. Mild focal aortic valve calcification. Mild (1+) eccentric aortic valve insufficiency. Pulmonic Valve The pulmonic valve is not well visualized. Trivial pulmonic valve insufficiency. Great Vessels Normal sized aortic root. Pericardium/Pleural Trivial pericardial effusion. There are no echocardiographic indications of cardiac tamponade. MMode/2D Measurements & Calculations LVIDd: 3.4 cm IVSd: 1.3 cm Ao root diam: 3.4 cm LVIDs: 1.7 cm LVPWd: 1.1 cm RVDd: 2.9 cm FS: 48.7 % LAV(MOD-bp): 53.5 ml LVAd ap4: 13.7 cm2 SV(MOD-sp4): 24.0 ml LAV(MOD-bp) Indexed: 38.5 ml/m2 LVLd ap4: 4.8 cm LAV(MOD-sp2): 49.2 ml EDV(MOD-sp4): 31.6 ml LAV(MOD-sp4): 45.7 ml EDV(sp4-el): 32.8 ml LVAs ap4: 6.1 cm2 LVLs ap4: 4.1 cm ESV(MOD-sp4): 7.7 ml ESV(sp4-el): 7.7 ml EF(MOD-sp4): 75.7 % EF(sp4-el): 76.6 % SV(sp4-el): 25.2 ml LA A4 area: 20.1 cm2 LA dimension(2D): 3.6 cm RA A4 area: 19.3 cm2 Doppler Measurements & Calculations MV E max judd: 84.2 cm/sec Lat Peak E' Judd: 6.5 cm/sec Med Peak E' Judd: 3.5 cm/sec MV A max judd: 89.8 cm/sec E/E' lat: 13.0 E/E' med: 23.7 MV E/A: 0.94 Ao V2 max: 198.7 cm/sec LV V1 max: 140.4 cm/sec PA V2 max: 107.1 cm/sec Ao max P.8 mmHg LV V1 max P.9 mmHg Ao V2 mean: 136.0 cm/sec Ao mean P.3 mmHg Ao V2 VTI: 36.8 cm TR max judd: 374.7 cm/sec TR max P.1 mmHg ECHO/Echo Complete Interpretation Summary Left ventricular systolic function is normal. The estimated ejection fraction is 70 %. The left atrium is moderately enlarged. The right atrium is moderately enlarged. There is mild mitral annular calcification. Anterior leaflet diffuse mitral valve thickening. Mild (1+) mitral valve insufficiency. Moderately severe (3+) tricuspid valve insufficiency. Mild focal aortic valve calcification. Mild (1+) eccentric aortic valve insufficiency. Trivial pulmonic valve insufficiency. Trivial pericardial effusion. There are no echocardiographic indications of cardiac tamponade. Right ventricular systolic pressure estimated to be 64 mmHg c/w pulmonary hyper tension. There is evidence of diastolic dysfunction. Ordering Physician: John Paul Villaseñor Referring Physician: Kevyn Tripp Performed By: Roma Zapata, CARYN, RVT
[2021-06-07 22:42] LABS: Magnesium 1.4 mg/dL (1.6-2.6)
[2021-06-07] MEDS: Potassium Chloride Oral Tablet 20 MEQ 40 MEQ PO (23:18)
[2021-06-07] MEDS: 0.9% Saline Lock 10 ML Syringe IV (23:23)
[2021-06-07] MEDS: Lactated Ringers 1,000 ML 75 ML IV (23:24)
[2021-06-08] VITALS (10 sets, daily range): BP systolic 105–121; BP diastolic 53–76; PULSE 67–89; RESP 16–18; TEMP 36.7–36.9; O2SAT 93–97
[2021-06-08 00:28] LABS: Troponin-I HS 14 pg/mL (3.0-54.0)
[2021-06-08] MEDS: 0.9% Saline Lock 10 ML Syringe IV ×3 (01:59→08:14)
[2021-06-08 02:43] LABS: Troponin-I HS 14 pg/mL (3.0-54.0)
[2021-06-08 06:29] LABS: Absolute Lymphocyte Count 1.42 X10^3/uL (0.83-4.51); Absolute Neutrophil Count 4.1 X10^3/uL (2.0-7.7); Basophil# 0.02 X10^3/uL; Basophil% 0.3 % (0-1); Eosinophils% 1.6 % (0-5); Hematocrit 28.7 % (37-47); Hemoglobin 10.4 g/dL (12.0-15.0); Lymphocyte # 1.42 X10^3/ul (0.83-4.51); Lymphocyte % 22.7 % (19-41); Mean Corp Hgb Conc 36.2 g/dL (32-36); Mean Corpuscular Hgb 28.8 pg (27.0-32.0); Mean Corpuscular Volume 79.5 fL (81-99); Mean Platelet Vol. 11.3 fl (6.2-12.0); Monocyte# 0.58 X10^3/uL; Monocyte% 9.3 % (0-10); NRBC Flagged by Analyzer 0 % (0-5); Neutrophil # 4.13 X10^3/uL (2.7-7.7); Neutrophil % 65.9 % (47-70); Platelet Count 178 K/mm3 (150-450); RBC Distribution Width CV 14.9 % (11.6-14.6); RBC Distribution Width SD 43.4 fl (35.1-43.9); Red Blood Count 3.61 M/mm3 (4.2-5.4); White Blood Count 6.3 K/mm3 (4.4-11.0)
[2021-06-08 06:55] LABS: Troponin-I HS 18 pg/mL (3.0-54.0)
[2021-06-08 07:06] LABS: Anion Gap 5 (5-15); BUN 21 mg/dL (7-18); BUN/Creat Ratio 16.2 RATIO (10-20); Calcium,Total 9.4 mg/dL (8.5-10.1); Chloride 115 mmol/L (98-107); EST Glomerular Filtration Rate 41 mL/min (>60); Est Glom Filt Rate - Afr Amer 50 mL/min (>60); Estimated Creatinine Clearance 20.48 ml/min; Glucose 95 mg/dL (74-106); Sodium Level 144 mmol/L (136-145)
[2021-06-08] MEDS: Atorvastatin Calcium 20 MG Tablet PO (08:13)
[2021-06-08] MEDS: Lactated Ringers 1,000 ML 75 ML IV (11:27)
--- NOTE | 2021-06-08 12:25 | CASEMGMT ---
ANNETTE SCHULTZ in to discuss TAN form with patient. RN MARION explained ATN form, patient voiced understanding. Pt signed form and filed in chart. Pt provided with a copy of signed TAN form. Patient had no further questions or concerns at this time. Pt with family in room.
--- NOTE | 2021-06-08 12:53 | PN.HOSP_ITS ---
Subjective Subjective Feels well. Had not been eating much as of late. Objective Data Objective Data Vital Signs: Vital Signs Temp Pulse Resp BP Pulse Ox 36.9 C 76 16 110/53 L 95 06/08/21 12:36 06/08/21 12:36 06/08/21 12:36 06/08/21 12:36 06/08/21 12:36 Oxygen Delivery Method Room Air Weight: 41 kg Body Mass Index (BMI) 17.6 Intake & Output: Intake and Output for Last 24 Hours 06/06/21 06/07/21 06/08/21 23:59 23:59 23:59 Intake Total 1999 1143.75 / 1143.75 Output Total 0 / 0 0 / 0 Balance 1999 1143.75 / 1143.75 Medical Nutrition Assessment Dietitian: Malnutrition Criteria Met Start: 06/08/21 11:38 Freq: Status: Active Protocol: Document 06/08/21 11:38 AG (Rec: 06/08/21 11:38 AG [id number]) Nutrition Malnutrition Evidence of Malnutrition Exists Yes Malnutrition (severe): Chronic Evidenced By Suboptimal Energy Intake ( Severe),Weight Loss (Severe), Physical Changes (Moderate) Clinical Problem Chronic Disease or Condition Related Malnutrition Etiology severe, chronic malnutrition r /t decreased appetite, inadequate energy intake Signs/Symptoms as evidenced by unintentional wt loss of 12.6#/12% x 3 months; estimated PO intake meeting <75% of estimated energy needs >3 months; moderate muscle wasting/fat loss in orbital, clavicles, acromion, and temporal areas per physical exam; BMI 17.7 Status Active Problem Recommendation Dietitian Recommendations/Changes will change diet to regular given malnutrition; will adjust supplement from Ensure Enlive to [place] Instant Breakfast per pt request. Lab / Micro Data Result Diagrams: 06/08/21 06:19 06/08/21 06:19 Labs: Laboratory Results - last 24 hr 06/07/21 17:30: WBC 7.4, RBC 3.42 L, Hgb 9.9 L, Hct 27.8 L, MCV 81.3, MCH 28.9, MCHC 35.6, RDW Std Deviation 44.5 H, RDW Coeff of Desiree 15.0 H, Plt Count 173, MPV 10.9, Immature Gran % (Auto) 0.300, Neut % (Auto) 82.3 H, Lymph % (Auto) 12.1 L, Kimball % (Auto) 4.7, Eos % (Auto) 0.3, Baso % (Auto) 0.3, Absolute Neuts (auto) 6.1, Absolute Lymphs (auto) 0.90, Nucleated RBC % 0 06/07/21 17:30: Sodium 143, Potassium 3.2 L, Chloride 114 H, Carbon Dioxide 27.0, Anion Gap 2 L, BUN 19 H, Creatinine 1.75 H, Estim Creat Clear Calc 16.83, Est GFR (MDRD) Af Amer 35 L, Est GFR (MDRD) Non-Af 29 L, BUN/Creatinine Ratio 10.9, Glucose 148 H, Calcium 8.4 L 06/07/21 17:30: Magnesium 1.4 L 06/07/21 19:45: Urine Color Ayesha, Urine Clarity Sl. Cloudy, Urine pH 5.0, Ur Specific [place] 1.025, Urine Protein 30 H, Urine Glucose (UA) Normal, Urine Ketones 5 H, Urine Occult Blood Negative, Urine Nitrite Negative, Urine Bi lirubin 3 H, Urine Urobilinogen 8 H, Ur Leukocyte Esterase 500 H, Urine RBC 0 SEEN, Urine WBC 10-25 SEEN, Ur Squamous Epith Cells 0-5 SEEN, Ur Renal Epithelial Cell 0-5 SEEN, Amorphous Sediment 1+, Urine Bacteria 0 SEEN, Urine Mucus 0 SEEN 06/07/21 19:59: Lactic Acid 0.4 06/08/21 00:00: Troponin I High Sens 14 06/08/21 02:05: Troponin I High Sens 14 06/08/21 06:19: WBC 6.3, RBC 3.61 L, Hgb 10.4 L, Hct 28.7 L, MCV 79.5 L, MCH 28.8, MCHC 36.2 H, RDW Std Deviation 43.4, RDW Coeff of Desiree 14.9 H, Plt Count 178, MPV 11.3, Immature Gran % (Auto) 0.200, Neut % (Auto) 65.9, Lymph % (Auto) 22.7, Kimball % (Auto) 9.3, Eos % (Auto) 1.6, Baso % (Auto) 0.3, Absolute Neuts (auto) 4.1, Absolute Lymphs (auto) 1.42, Nucleated RBC % 0 06/08/21 06:19: Sodium 144, Potassium 4.0, Chloride 115 H, Carbon Dioxide 24.0, Anion Gap 5, BUN 21 H, Creatinine 1.30 H, Estim Creat Clear Calc 20.48, Est GFR (MDRD) Af Amer 50 L, Est GFR (MDRD) Non-Af 41 L, BUN/Creatinine Ratio 16.2, Glucose 95, Calcium 9.4 06/08/21 06:19: Troponin I High Sens 18 Radiography Diagnostic Testing: Radiology Impression Chest X-Ray 06/07/21 17:15 IMPRESSION: No acute radiographic abnormalities. COPD. Electronically Signed: Nato Ibrahim MD at 18:30 EDT , Rhythm Strip Rhythm Strip: Sinus Rhythm Rate: 69 Ectopy: None Physical Exam Const alert and no apparent distress Resp normal respiratory effort, no retractions, no use of accessory muscles and clear to auscultation bilaterally Cardio regular rate, regular rhythm, S1 normal heart sound and S2 normal heart sound GI normal to inspection, nondistended, normoactive bowel sounds, soft to palpation, non-tender and non-distended Extremity normal to inspection Neuro Sensorium / Orientation: awake and alert Assessment & Plan Assessment/Plan (1) Syncope: QUALIFIERS: Syncope type: unspecified Qualified Code(s): R55 - Syncope and collapse (2) MELANIE (acute kidney injury): (3) Hypokalemia: (4) Acute hypotension: PLAN: 1. Syncope Resolved likely due to hypotension Static vital signs performed and were negative 2. Acute kidney injury Likely due to prerenal azotemia as patient endorses that she has not been eating or drinking much as of late. Improved. 3. Hypokalemia Resolved 4. Hypotension Likely combination of dehydration as well as iatrogenic due to her extensive a ntihypertensive regimen. 5. Chronic hypertension Home regimen is amlodipine 10 mg daily, carvedilol 12.5 mg twice daily, lisinopril 40 mg daily and minoxidil 10 mg daily. Blood pressure better and will restart carvedilol but continue to hold the other medications for now. 6. Debility Given patient's advanced age patient is certainly at risk for debility so we will have physical occupational therapy evaluate her prior to discharge. Charges/Coding Visit Charges OBSV E&M: 94858 Subsequent observation care L2
[2021-06-08] MEDS: Carvedilol 12.5 MG Tablet PO (22:06)
[2021-06-09 03:14] VITALS: PULSE 73
[2021-06-09] MEDS: Lactated Ringers 1,000 ML 75 ML IV (03:50)
[2021-06-09 04:05] VITALS: BP 143/73; PULSE 67; RESP 18; TEMP 36.8; O2SAT 94
[2021-06-09 07:19] LABS: Anion Gap 3 (5-15); BUN 17 mg/dL (7-18); BUN/Creat Ratio 19.1 RATIO (10-20); Calcium,Total 9.4 mg/dL (8.5-10.1); Chloride 113 mmol/L (98-107); Creatinine, Serum 0.89 mg/dL (0.55-1.02); EST Glomerular Filtration Rate 64 mL/min (>60); Est Glom Filt Rate - Afr Amer 77 mL/min (>60); Estimated Creatinine Clearance 29.91 ml/min; Glucose 103 mg/dL (74-106); Potassium 3.7 mmol/L (3.5-5.1); Sodium Level 144 mmol/L (136-145)
[2021-06-09 07:29] VITALS: PULSE 66
[2021-06-09 09:32] VITALS: BP 162/86; PULSE 72; RESP 12; TEMP 36.8; O2SAT 95
[2021-06-09] MEDS: Atorvastatin Calcium 20 MG Tablet PO (09:37)
[2021-06-09] MEDS: Carvedilol 12.5 MG Tablet PO (09:37)
--- NOTE | 2021-06-09 11:19 | PCM.DC ---
Discharge Instructions Diet Discharge Diet: Low fat / Low cholesterol Dressing / Incision Call your doctor if you observe: Dizziness and Fainting spells Follow Up Care Test Results: Test results from this visit will be discussed in further detail at your follow-up appointment, if applicable. Discharge Plan Admission Admit Date/Time: 06/07/21 21:39 Primary Reason for Your Visit: syncope Attending Provider: Sulaiman Stanley Primary Care Provider: Kevyn Tripp Discharge Orders/Prescriptions Prescriptions: New amlodipine 2.5 mg tablet 2.5 mg PO DAILY Qty: 30 RF: 0 Continued carvedilol 12.5 MG tablet 12.5 mg PO BID Qty: 60 RF: 0 simvastatin 80 MG tablet 40 mg PO DAILY Qty: 30 RF: 0 Discontinued amlodipine 10 MG tablet 10 mg PO DAILY RF: 0 minoxidil 10 MG tablet 10 mg PO DAILY RF: 0 lisinopril 40 MG tablet 40 mg PO DAILY RF: 0 Referrals / Follow Up: Kevyn Tripp MD [Primary Care Provider] - Within 2 Weeks Disposition Disposition (needs filled in before D/C Order can be placed): Home Health Service
--- NOTE | 2021-06-09 11:23 | PCM.DC.SUM ---
Providers Date of Admission: 06/07/21 Primary Care Physician: Dr. Kevyn Tripp MD Reason For Visit: SYNCOPE Diagnosis Discharge Diagnosis (1) Syncope: Status: Acute Code(s): R55 - Syncope and collapse Qualifiers: Syncope type: unspecified Qualified Code(s): R55 - Syncope and collapse (2) MELANIE (acute kidney injury): Status: Acute Code(s): N17.9 - Acute kidney failure, unspecified (3) Hypokalemia: Status: Acute Code(s): E87.6 - Hypokalemia (4) Acute hypotension: Status: Acute Code(s): I95.9 - Hypotension, unspecified Medications at Discharge Home Medications amlodipine 2.5 mg PO DAILY #30 tab 06/09/21 carvedilol 12.5 mg PO BID #60 tab 06/09/21 simvastatin 40 mg PO DAILY #30 tab 06/09/21 Hospital Course Operations None Procedures 2-D Echocardiogram Summary of Care Provided Minutes Spent on Discharge: 35 Hospital Course: This is a 85-year-old female presents with syncope. Patient presents emergency room after having 2 syncopal episodes and was hypotensive. Patient had acute kidney injury with a creatinine of 1.75. With the patient's blood pressure medications which there were 4, those were held. Blood pressure did improve with fluids as well as her kidney function improved. Patient did have some hypokalemia which also improved. Patient blood pressure has gone up slightly and will be continued on her carvedilol 12.5 mg twice daily but also start her on a reduced dose of her amlodipine instead of 10 to be 2.5 mg daily. Patient will continue to hold the lisinopril and minoxidil. Hopefully by withholding the minoxidil that may also help some of her hirsutism. Patient was seen by therapy and recommend additional therapy upon discharge. Patient will have home health care. Patient did have acute echocardiogram showed EF of 70%, left and right atrium moderately enlarged moderately severe 3+ tricuspid valve insufficiency and patient did have pulmonary hypertension 64 mmHg. Medical Records Data Medical Nutrition Assessment Dietitian: Malnutrition Criteria Met Start: 06/08/21 11:38 Freq: Status: Active Protocol: Document 06/08/21 11:38 AG (Rec: 06/08/21 11:38 AG [id number]) Nutrition Malnutrition Evidence of Malnutrition Exists Yes Malnutrition (severe): Chronic Evidenced By Suboptimal Energy Intake ( Severe),Weight Loss (Severe), Physical Changes (Moderate) Clinical Problem Chronic Disease or Condition Related Malnutrition Etiology severe, chronic malnutrition r /t decreased appetite, inadequate energy intake Signs/Symptoms as evidenced by unintentional wt loss of 12.6#/12% x 3 months; estimated PO intake meeting <75% of estimated energy needs >3 months; moderate muscle wasting/fat loss in orbital, clavicles, acromion, and temporal areas per physical exam; BMI 17.7 Status Active Problem Recommendation Dietitian Recommendations/Changes will change diet to regular given malnutrition; will adjust supplement from Ensure Enlive to [place] Instant Breakfast per pt request. Weight / BMI Weight Weight: 41 kg Body Mass Index (BMI) 17.6 ABG / Lab / Microbiology Data Result Diagrams: 06/08/21 06:19 06/09/21 05:26 Laboratory: Laboratory Results - last 24 hr 06/09/21 05:26: Sodium 144, Potassium 3.7, Chloride 113 H, Carbon Dioxide 28.0, Anion Gap 3 L, BUN 17, Creatinine 0.89, Estim Creat Clear Calc 29.91, Est GFR (MDRD) Af Amer 77, Est GFR (MDRD) Non-Af 64, BUN/Creatinine Ratio 19.1, Glucose 103, Calcium 9.4 Radiography Diagnostic Testing: Radiology Impression Echocardiogram 06/07/21 22:29 Interpretation Summary Left ventricular systolic function is normal. The estimated ejection fraction is 70 %. The left atrium is moderately enlarged. The right atrium is moderately enlarged. There is mild mitral annular calcification. Anterior leaflet diffuse mitral valve thickening. Mild (1+) mitral valve insufficiency. Moderately severe (3+) tricuspid valve insufficiency. Mild focal aortic valve calcification. Mild (1+) eccentric aortic valve insufficiency. Trivial pulmonic valve insufficiency. Trivial pericardial effusion. There are no echocardiographic indications of cardiac tamponade. Right ventricular systolic pressure estimated to be 64 mmHg c/w pulmonary hypertension. There is evidence of diastolic dysfunction. Ordering Physician: John Paul Villaseñor Referring Physician: Kevyn Tripp Performed By: Roma Zapata RDCS, RVT D/C Instructions Discharge Diet: Low fat / Low cholesterol Call your doctor if you observe: Dizziness and Fainting spells Meaningful Use Info Meaningful Use Diagnoses (Choose all that apply): None applicable Discharge Plan Admission Admit Date/Time: 06/07/21 21:39 Primary Reason for Your Visit: syncope Attending Provider: Sulaiman Stanley Primary Care Provider: Kevyn Tripp Discharge Orders/Prescriptions Prescriptions: New amlodipine 2.5 mg tablet 2.5 mg PO DAILY Qty: 30 RF: 0 Continued carvedilol 12.5 MG tablet 12.5 mg PO BID Qty: 60 RF: 0 simvastatin 80 MG tablet 40 mg PO DAILY Qty: 30 RF: 0 Discontinued amlodipine 10 MG tablet 10 mg PO DAILY RF: 0 minoxidil 10 MG tablet 10 mg PO DAILY RF: 0 lisinopril 40 MG tablet 40 mg PO DAILY RF: 0 Referrals / Follow Up: Kevyn Tripp MD [Primary Care Provider] - Within 2 Weeks Disposition Disposition (needs filled in before D/C Order can be placed): Home Health Service Charges/Coding Visit Charges OBSV E&M: 32604 Observation care discharge
--- NOTE | 2021-06-10 12:30 | CASEMGMT ---
ANNETTE SCHULTZ called to follow-up with patient to inquire how patient was doing. ANNETTE SCHULTZ inquired if patient needed assistance with outpatient therapy setup or HHC. Patient states she has follow-up appt with PCP on Wednesday 06/14 and will inquire with PCP if she should have therapy in the outpatient setting or with HHC. ANNETTE SCHULTZ educated patient that PCP could assist in setup should she decide she needs outpatient therapy or HHC. ANNETTE SCHULTZ inquired if patient needed any additional resources and patient declined needs at this time. Patient had no further questions or concerns at this time.
--- NOTE | 2021-06-11 14:33 | CASEMGMT ---
Social Work Received a call from Fatimah Del Castillo, who identified self as the granddaughter for this patient. Fatimah expressed concern for patient and patient's at home, as the patient has typically been the primary caregiver for the , but now having a hard time with mobility at home. Fatimah reported that had tried to call the previous case preparer and liner, Dawson, but found that Dawson is no longer employed at [facility]. Educated Fatimah, in generalities without acknowledging patient's admission to hospital, to skilled home health care versus private duty. Fatimah reports to be a case preparer and liner for [employer] insurance and reports that patient may make too much for Medicaid to get personal care home administrator services. Educated than Medicare and other insurances cover skilled home health care and what type of services these are. Educated that PCP must order this. Fatimah reports patient was to go to [facility] for outpatient PT but is having a hard time getting around. Currently another granddaughter or cousin is in the home helping patient and patient's , as well as patient gets MOW's. Fatimah reports will call PCP about order for HHC. This newswriter suggested that a referral to the [facility] may be helpful for a free alf care consultation. Offered to send private duty list to Fatimah as a reference and possible supplement to any care that may be ordered for the patient. Fatimah provided email and this newswriter emailed Fatimah requested information. After phone call, brief chart reviewed done and noted patient is a patient of [facility] CCN program. For continuity of care of family, this wirter spoke with Josh, director of CCN program, of call from family and what has been reviewed for resources. Plan: Patient has been discharged home previously. Sent private duty Home Health list via email to the concerned family member. Updated CCN. Family member reports intent to call the PCP for a HHC order. No other services requested. -JANEEN Black, FANCY PACKER
== END 2021-06-09 11:22 | disposition home health service (06) ==
LOC: ED 20:13 → PCU 21:51
PROVIDERS: Admitting Provider Hospitalist; Emergency Provider Emergency Medicine; PCP Family Medicine
DX: I95.9 Hypotension, unspecified (principal); E44.0 Moderate protein-calorie malnutrition; N17.9 Acute kidney failure, unspecified; R55 Syncope and collapse; E78.5 Hyperlipidemia, unspecified; R94.31 Abnormal electrocardiogram [ECG] [EKG]; R11.2 Nausea with vomiting, unspecified; I10 Essential (primary) hypertension; R53.81 Other malaise; E87.6 Hypokalemia; Z79.899 Other long term (current) drug therapy; Z68.1 Body mass index [BMI] 19.9 or less, adult
CPT/HCPCS: 36415; 71045; 80048; 81001; 83605; 83735; 84484; 85025; 87040; 93005; 93306; 96360; 96361; 97162; 97166; 97802; 99218; 99285; J7030; J7050; J7120; A4216; G0378